=== PATIENT | male | born 1935 | race Hispanic/Latino ===

== ENCOUNTER → 2017-07-11 | Outpatient (CLI) | payer MEDICARE ==
[~2017-07-11] MED LIST: ATOR40TA71 PO; METF500T6 PO
== END | disposition home or self-care (01) ==
LOC: RAH 09:48
PROVIDERS: ATTEND Internal Medicine Gastroenterology
DX: R11.2 Nausea with vomiting, unspecified (principal); R63.0 Anorexia; R10.9 Unspecified abdominal pain
CPT/HCPCS: 78264; A9540; A9541

== ENCOUNTER 2017-09-28 13:14 | Emergency (ER) | payer MEDICARE ==
[2017-09-28] MEDS ORDERED: ONDANSETRON HCL MDV 20ML 2 MG/ML VIAL ONE (14:34)
[2017-09-28] MEDS ORDERED: MORPHINE SULFATE 2 MG/ML 1ML SYG ONE (14:35)
[2017-09-28] MEDS ORDERED: BACLOFEN 10 MG TABLET PO ONE (14:35)
[2017-09-28] MEDS ORDERED: IBUPROFEN 600 MG TABLET ONE (16:50)
== END 2017-09-28 17:11 | disposition home or self-care (01) ==
LOC: EDH 13:14
DX: G24.3 Spasmodic torticollis (principal); E78.5 Hyperlipidemia, unspecified; I25.10 Atherosclerotic heart disease of native coronary artery without angina pectoris; E11.9 Type 2 diabetes mellitus without complications; Z95.1 Presence of aortocoronary bypass graft; Z72.0 Tobacco use
CPT/HCPCS: 96374; 96375

== ENCOUNTER → 2021-08-07 | Outpatient (CLI) | payer MEDICARE ==
[~2021-08-07] MED LIST changes: +METF-444 PO; -METF500T6 PO
== END | disposition home or self-care (01) ==
LOC: SHCH 15:49
PROVIDERS: ATTEND Student in an Organized Health Care Education/Training Program
DX: I08.1 Rheumatic disorders of both mitral and tricuspid valves (principal); I25.3 Aneurysm of heart; E11.9 Type 2 diabetes mellitus without complications; E78.5 Hyperlipidemia, unspecified
CPT/HCPCS: 93306

== ENCOUNTER 2022-03-22 13:17 | Emergency (ER) | payer MEDICARE ==
[~2022-03-22] VITALS: Ht 152.4 cm; Wt 58.1 kg
[2022-03-22 14:19] LABS: BASOPHILS % (AUTO) 0.7 % (0.0-5.0); EOSINOPHILS % (AUTO) 2.7 % (0.0-8.0); HEMATOCRIT 43.9 % (42-54); LYMPHOCYTES % (AUTO) 18.4 % (21.0-51.0); MEAN CORPUSCULAR HEMOGLOBIN 29.8 pg (27.0-33.0); MEAN CORPUSCULAR HGB CONC 32.8 g/dL (32.0-36.0); MEAN CORPUSCULAR VOLUME 90.7 fL (79-99); MONOCYTES % (AUTO) 7.3 % (3.0-13.0); NEUTROPHILS % (AUTO) 70.3 % (40.0-77.0); PLATELET COUNT (AUTO) 267 K/uL (130-400); RED BLOOD CELL COUNT(AUTO) 4.84 MIL/uL (4.50-6.20); RED CELL DISTRIBUTION WIDTH 14.3 % (11.0-15.5); WHITE BLOOD COUNT (AUTO) 13.9 K/uL (4.8-10.8)
[2022-03-22 14:26] LABS: APPEARANCE,URINE CLEAR (CLEAR); BILIRUBIN,URINE NEGATIVE (NEGATIVE); COLOR,URINE LIGHT-YELLOW (YELLOW); GLUCOSE, URINE (UA) NEGATIVE (NEGATIVE); KETONES,URINE 5 mg/dL (NEGATIVE); LEUKOCYTE ESTERASE ,URINE 75 Leu/uL (NEGATIVE); NITRATE,URINE NEGATIVE (NEGATIVE); OCCULT BLOOD,URINE NEGATIVE (NEGATIVE); PH,URINE 6.5 (5.0-8.0); PROTEIN,URINE NEGATIVE (NEGATIVE); UROBILINOGEN,URINE 0.2 mg/dL (0.2-1.0)
[2022-03-22] MEDS ORDERED: KETOROLAC 15MG/ML VIAL (15MG/ML) IV ONE (14:30)
[2022-03-22] MEDS ORDERED: MORPHINE 4 MG SYG IVP ONE ×2 (14:30→16:00)
[2022-03-22 14:31] LABS: POTASSIUM 3.6 mmol/L (3.5-5.1)
[2022-03-22 14:33] LABS: RBC,URINE 0-1 /HPF (0-1)
[2022-03-22 14:41] LABS: ALBUMIN 3.2 g/dL (3.5-5.0); TOTAL PROTEIN, SERUM 7.3 g/dL (6.0-8.3)
[2022-03-22 15:08] VITALS: BP 149/53
[2022-03-22] MEDS ORDERED: ACET-2079 PO (15:51)
== END 2022-03-22 16:40 | disposition home or self-care (01) ==
LOC: EDH 13:17
DX: M48.02 Spinal stenosis, cervical region (principal); M47.12 Other spondylosis with myelopathy, cervical region; E11.9 Type 2 diabetes mellitus without complications; E78.00 Pure hypercholesterolemia, unspecified; F17.210 Nicotine dependence, cigarettes, uncomplicated; Z79.899 Other long term (current) drug therapy; Z79.84 Long term (current) use of oral hypoglycemic drugs; Z90.89 Acquired absence of other organs; Z98.890 Other specified postprocedural states
CPT/HCPCS: 99284; 96374; 72125; 96375; 80053; 85025; 87088; 81001; 36415; 96376; J2270 ×2; J1885

== ENCOUNTER 2022-03-29 23:31 | Emergency (ER) | payer MEDICARE ==
[~2022-03-29] VITALS: Ht 154.9 cm; Wt 58.1 kg
[~2022-03-29 23:31] MED LIST changes: +ACET-2079 PO
[2022-03-30 01:29] VITALS: BP 153/60
[2022-03-30] MEDS ORDERED: DIPH,PERTUSS(ACELL),TET VAC/PF 0.5 ML VIAL IM ONE (02:00)
[2022-03-30] MEDS ORDERED: TETANUS/DIPHTHERIA TOXOID [ADULT] 0.5 ML VIAL IM ONE (02:03)
== END 2022-03-30 02:11 | disposition home or self-care (01) ==
LOC: EDH 23:31
DX: S01.01XA Laceration without foreign body of scalp, initial encounter (principal); T40.425A Adverse effect of tramadol, initial encounter; M54.2 Cervicalgia; E11.9 Type 2 diabetes mellitus without complications; E78.00 Pure hypercholesterolemia, unspecified; I10 Essential (primary) hypertension; I25.10 Atherosclerotic heart disease of native coronary artery without angina pectoris; Z79.84 Long term (current) use of oral hypoglycemic drugs; Z79.899 Other long term (current) drug therapy; Z90.49 Acquired absence of other specified parts of digestive tract; Z95.1 Presence of aortocoronary bypass graft; W18.39XA Other fall on same level, initial encounter; Y93.89 Activity, other specified; Y92.89 Other specified places as the place of occurrence of the external cause; Y99.8 Other external cause status
CPT/HCPCS: 70450; 72125; 90471; 90714; 90715

== ENCOUNTER 2022-06-08 01:50 | Emergency (ER) | payer MEDICARE ==
[~2022-06-08] VITALS: Ht 154.9 cm; Wt 58.1 kg
[2022-06-08 02:26] LABS: CREATININE 0.8 mg/dL (0.5-1.5); POTASSIUM 3.3 mmol/L (3.5-5.1)
[2022-06-08 02:27] LABS: BASOPHILS % (AUTO) 0.8 % (0.0-5.0); EOSINOPHILS % (AUTO) 0.9 % (0.0-8.0); HEMATOCRIT 44.7 % (42-54); LYMPHOCYTES % (AUTO) 17.2 % (21.0-51.0); MEAN CORPUSCULAR HGB CONC 32.7 g/dL (32.0-36.0); MEAN CORPUSCULAR VOLUME 88.7 fL (79-99); MONOCYTES % (AUTO) 8.7 % (3.0-13.0); NEUTROPHILS % (AUTO) 71.9 % (40.0-77.0); PLATELET COUNT (AUTO) 428 K/uL (130-400); RED BLOOD CELL COUNT(AUTO) 5.04 MIL/uL (4.50-6.20); RED CELL DISTRIBUTION WIDTH 15.4 % (11.0-15.5); WHITE BLOOD COUNT (AUTO) 12.7 K/uL (4.8-10.8)
[2022-06-08 02:30] LABS: ALBUMIN 3.2 g/dL (3.5-5.0); TOTAL PROTEIN, SERUM 7.8 g/dL (6.0-8.3)
[2022-06-08] MEDS ORDERED: MORPHINE 4 MG SYG IVP ONE (02:30)
[2022-06-08] MEDS ORDERED: ONDANSETRON 4MG INJ IV ONE (02:30)
[2022-06-08] MEDS ORDERED: KETOROLAC 15MG/ML VIAL (15MG/ML) ONE (03:55)
[2022-06-08] MEDS ORDERED: KETOROLAC 15MG/ML VIAL (15MG/ML) IV ONE (04:00)
[2022-06-08] MEDS ORDERED: ACET-2079 PO (06:02)
[2022-06-08 07:20] VITALS: BP 115/51
== END 2022-06-08 07:24 | disposition home or self-care (01) ==
LOC: EDH 01:50
DX: R51.9 Headache, unspecified (principal); E11.9 Type 2 diabetes mellitus without complications; E78.00 Pure hypercholesterolemia, unspecified; Z95.1 Presence of aortocoronary bypass graft
CPT/HCPCS: 99285; 80053; 85025; 36415; 71045; 70450; 96374; 96375; J2405; J2270; J1885

== ENCOUNTER 2022-06-22 20:20 | Emergency (ER) | payer MEDICARE ==
[~2022-06-22] VITALS: Ht 157.5 cm; Wt 58.1 kg
[2022-06-22 20:54] LABS: BASOPHILS % (AUTO) 0.7 % (0.0-5.0); EOSINOPHILS % (AUTO) 0.5 % (0.0-8.0); MEAN CORPUSCULAR HGB CONC 32.4 g/dL (32.0-36.0); MEAN CORPUSCULAR VOLUME 86.2 fL (79-99); MONOCYTES % (AUTO) 9.8 % (3.0-13.0); NEUTROPHILS % (AUTO) 73.4 % (40.0-77.0); PLATELET COUNT (AUTO) 461 K/uL (130-400); RED BLOOD CELL COUNT(AUTO) 5.22 MIL/uL (4.50-6.20); RED CELL DISTRIBUTION WIDTH 15.5 % (11.0-15.5); WHITE BLOOD COUNT (AUTO) 15.2 K/uL (4.8-10.8)
[2022-06-22 21:05] LABS: CREATININE 0.9 mg/dL (0.5-1.5)
[2022-06-22 21:08] LABS: ALBUMIN 2.7 g/dL (3.5-5.0)
[2022-06-22 21:21] LABS: B-TYPE NATRIURETIC PEPTIDE 194 pg/mL (0-100)
[2022-06-22 21:45] LABS: TOTAL PROTEIN, SERUM 7.8 g/dL (6.0-8.3)
[2022-06-22] MEDS ORDERED: GABA300C PO (23:44)
[2022-06-22] MEDS ORDERED: LIDOP TD (23:44)
[2022-06-22] MEDS ORDERED: IBUP-1493 PO (23:44)
[2022-06-23 00:11] VITALS: BP 121/63
== END 2022-06-23 00:31 | disposition home or self-care (01) ==
LOC: EDH 20:20
DX: M48.02 Spinal stenosis, cervical region (principal); M54.12 Radiculopathy, cervical region; I25.10 Atherosclerotic heart disease of native coronary artery without angina pectoris; E11.9 Type 2 diabetes mellitus without complications; E78.00 Pure hypercholesterolemia, unspecified; Z95.1 Presence of aortocoronary bypass graft; Z79.899 Other long term (current) drug therapy; Z20.822 Contact with and (suspected) exposure to COVID-19
CPT/HCPCS: 99285; 84484 ×2; 80053; 83880; 85025; 87804 ×2; 36415; 87635; 73100; 71045; 93005; C9803

== ENCOUNTER → 2023-02-21 | Outpatient (CLI) | payer MEDICARE ==
[~2023-02-21] MED LIST changes: +GABA300C PO; +IBUP-1493 PO; +LIDOP TD
[2023-02-21 12:33] LABS: ALBUMIN 3.6 g/dL (3.5-5.0); BILIRUBIN,TOTAL 0.4 mg/dL (0.2-1.0); POTASSIUM 4.3 mmol/L (3.5-5.1); TOTAL PROTEIN, SERUM 7.7 g/dL (6.0-8.3)
== END | disposition home or self-care (01) ==
LOC: LAB 09:53
PROVIDERS: ATTEND Student in an Organized Health Care Education/Training Program
DX: R07.9 Chest pain, unspecified (principal)
CPT/HCPCS: 36415; 80053

== ENCOUNTER → 2023-02-27 | Outpatient (CLI) | payer MEDICARE ==
[~2023-02-27] MED LIST changes: +IOHEXOL 350 MG/ML 100ML INFUS..BTL IV ONE
== END | disposition home or self-care (01) ==
LOC: RAH 09:18
PROVIDERS: ATTEND Student in an Organized Health Care Education/Training Program
DX: R07.9 Chest pain, unspecified (principal)
CPT/HCPCS: 75574; Q9967